=== PATIENT | female | born 2005 | race Caucasian/White ===

== ENCOUNTER 2024-11-02 17:50 | Emergency (ER) | payer SELFPAY ==
[~2024-11-02] VITALS: Ht 154.9 cm; Wt 39.1 kg
[2024-11-02 18:19] VITALS: TEMP 97.1
[2024-11-02 18:55] LABS: BILIRUBIN,URINE NEGATIVE (Neg); CLARITY,URINE CLEAR (Clear); COLOR,URINE YELLOW (Yellow); GLUCOSE, URINE NEGATIVE (Neg); KETONES,URINE TRACE mg/dl (Neg); LEUKOCYTE ESTERASE ,URINE NEGATIVE (Neg); NITRITES, URINE NEGATIVE (Neg); OCCULT BLOOD,URINE NEGATIVE (Neg); PH,URINE 6.5 (4.8-8.0); PROTEIN,URINE NEGATIVE (Neg); UROBILINOGEN,URINE 0.2 E.U/dL (0.2-1.0)
[2024-11-02 18:56] LABS: URINE HCG NEGATIVE (NEG)
[2024-11-02 19:03] LABS: UA COLLECTION TYPE CLN CATCH MIDSTREAM
[2024-11-02 19:13] LABS: BASOPHILS % (AUTO) 0.3 % (0-1); EOSINOPHILS # (AUTO) 0.1 X10'3 (0-0.9); HEMOGLOBIN 10.4 g/dl (12.0-16.0); LYMPHOCYTES # (AUTO) 1.8 X10'3 (1.1-4.8); LYMPHOCYTES % (AUTO) 24.4 % (21-51); MEAN CORPUSCULAR HEMOGLOBIN 28.5 PG (27.0-31.0); MEAN CORPUSCULAR HGB CONC 34.7 g/dL (33.0-36.5); MEAN CORPUSCULAR VOLUME 82.3 FL (78-98); MONOCYTES # (AUTO) 0.8 X10'3 (0-0.9); MONOCYTES % (AUTO) 10.9 % (2-12); NEUTROPHILS # (AUTO) 4.6 X10'3 (1.8-7.7); NEUTROPHILS % (AUTO) 63.4 % (42-75); PLATELET COUNT 167 X10'3 (140-440); RED BLOOD COUNT 3.64 X10'6 (4.20-5.60); RED CELL DISTRIBUTION WIDTH 13.5 % (11.5-14.5); WHITE BLOOD COUNT 7.3 X10'3 (4.5-11.0)
[2024-11-02 19:24] LABS: ALANINE AMINOTRANSFERASE 17 U/L (12-78); ALBUMIN 4.3 G/DL (3.4-5.0); ALBUMIN/GLOBULIN RATIO 1.4 (1.1-1.5); ALKALINE PHOSPHATASE 63 IU/L (20-180); ANION GAP 9 (8-16); ASPARTATE AMINO TRANSFERASE 15 U/L (10-37); BILIRUBIN,TOTAL 1.9 MG/DL (0.1-1.0); BLOOD UREA NITROGEN 9 MG/DL (7-18); BUN/CREATININE RATIO 13.4 (10.0-20.0); CALCIUM 8.8 MG/DL (8.5-10.1); CHLORIDE 105 MMOL/L (99-107); CREATININE 0.67 MG/DL (0.40-0.90); GLUCOSE 84 MG/DL (70-104); LIPASE 20 U/L (16-77); POTASSIUM 3.8 MMOL/L (3.5-5.1); SODIUM 143 MMOL/L (135-145); TOTAL CARBON DIOXIDE 28.7 MMOL/L (24-32); TOTAL PROTEIN 7.3 G/DL (6.4-8.2); eCRCL 83 ML/MIN; eGFR > 90 ML/MIN
--- NOTE | 2024-11-02 19:28 | Physician Documentation ---
History of Present Illness Chief Complaint: Abdominal Pain Stated Complaint: ABDOMINAL PAIN Source: patient, family Mode of Arrival: POV Exam Limitations: no limitations HPI Otherwise healthy female with right lower quadrant pain over the past 2 days. Did start after she bent over to pick something up. Has been relatively constant. It is mild to moderate. Did start her menstrual cycle a little early. Her family did travel from the [facility] yesterday. She does feel a little bit constipated. No nausea or vomiting. Medication Reconciliation Allergies: Coded Allergies: No Known Allergies (Unverified , 11/02/24) Past Medical History Past Medical History: No Pertinent History Review of Systems All Other Systems at this time: Reviewed and Negative Physical Exam Vital Signs: Temperature: 97.1, Heart Rate: 110, Respiratory Rate: 15, BP: 122/72, Pulse Oximetry: 100, Weight: 39.100 Physical Exam General: Alert and oriented x4, well-appearing, well-nourished, no acute distress HEENT: Normocephalic, atraumatic, no visible or palpable masses or depression, extraocular movements intact, PERRLA, Heart: Regular rate Lungs: Clear normal work of breathing Abdomen: Soft, mildly tender in the right lower quadrant, no palpable masses Extremities: Full range of motion, no acute deformity, Musculoskeletal: Normal gait, normal tone Neurologic: Cranial nerves 2-12 are intact, Psychiatric: Alert and oriented x4, judgment and insight normal, normal mood and affect Skin: Good turgor, no rashes Progress Results/Orders Results/Orders Vital Signs 11/02/24 18:19 Temp 97.1 Pulse 110 Resp 15 B/P (MAP) 122/72 Pulse Ox 100 Laboratory Tests Test 11/02/24 18:23 11/02/24 18:35 Urine Specimen Description Cln catch midstream Urine Color Yellow Urine Clarity Clear Urine pH 6.5 Urine Specific [place] <=1.005 Urine Protein Negative Urine Glucose (UA) Negative Urine Ketones Trace H Urine Occult Blood Negative Urine Nitrite Negative Urine Bilirubin Negative Urine Urobilinogen 0.2 Urine Leukocyte Esterase Negative Urine Culture Indicated Not ind Volume Urine Centrifuged 10 ml Urine HCG, Qualitative Negative Urine Comment White Blood Count 7.3 Red Blood Count 3.64 L Hemoglobin 10.4 L Hematocrit 30.0 L Mean Corpuscular Volume 82.3 Mean Corpuscular Hemoglobin 28.5 Mean Corpuscular Hemoglobin Concent 34.7 Red Cell Distribution Width 13.5 Platelet Count 167 Mean Platelet Volume 8.0 Neutrophils (%) (Auto) 63.4 Lymphocytes (%) (Auto) 24.4 Monocytes (%) (Auto) 10.9 Eosinophils (%) (Auto) 1.0 Basophils (%) (Auto) 0.3 Neutrophils # (Auto) 4.6 Lymphocytes # (Auto) 1.8 Monocytes # (Auto) 0.8 Eosinophils # (Auto) 0.1 Basophils # (Auto) 0.0 CBC Comment Sodium Level 143 Potassium Level 3.8 Chloride Level 105 Carbon Dioxide Level 28.7 Anion Gap 9 Blood Urea Nitrogen 9 Creatinine 0.67 Estimated GFR/1.73 m2 > 90 BUN/Creatinine Ratio 13.4 Glucose Level 84 Calcium Level 8.8 Total Bilirubin 1.9 H Aspartate Amino Transf (AST/SGOT) 15 Alanine Aminotransferase (ALT/SGPT) 17 Alkaline Phosphatase 63 Total Protein 7.3 Albumin 4.3 Globulin 3.0 Albumin/Globulin Ratio 1.4 Lipase 20 Chemistry Comments Medical Decision Making Additional Comments Differential includes but is not limited to: Appendicitis, UTI, , ovarian cyst/torsion, constipation, dehydration Departure Disposition: HOME / SELF CARE / HOMELESS Impression: Primary Impression: Right lower quadrant pain Additional Impression Text Patient in with a very dull right lower quadrant pain. Proximally 2/10. Did not want any medication. Labs unremarkable including CBC, chemistry and urinalysis. test negative. GC chlamydia sent out for testing. Ultrasound showed an enlarged right ovary at 5 x 5 x 6 cm. It does show free fluid in the pelvis. Radiologist called and said there is blood flow to the ovary but given the rest of the findings could not rule out torsion. Discussed the case with Gynecology Dr. Calderon at [facility]. He felt that given the patient's lack of pain and the fact that she was resting comfortably that torsion was highly unlikely. More likely retrograde menstrual cycle or ovarian cyst. Also no leukocytosis. Abdominal ultrasound also ruled out appendicitis. It is currently 3:[address] Calderon will see her in his office at 8:30 a. m.. Discharged home in good condition. Once again declined pain medication. She is to return here or go to [facility] if new or worsening symptoms prior to follow up at 8:30 a.m. in the morning. Condition: Stable Discharge Instructions: Abdominal Pain, Women Additional Instructions: Follow-up with Dr. Ashlyn Calderon between 8:15 a.m. and 9:00 a.m. The address is [address] [place] [address]. Phone number is [phone]. Return to the emergency room prior to that appointment if new or worsening symptoms. Referrals: NO PRIMARY CARE PROVIDER (PCP) Education Educated: Patient, Family Educated regarding: diagnosis, treatment, prognosis Additional Comment Medical Screen Exam History: This is a 18-year-old female presents with two days of periumbilical abdominal pain onset after bending over to pick something up that is worse with walking, patient reports nausea without diarrhea or vomiting, patient reports some dysuria without fever or chills. Patient reports recent constipation though had bowel movement today. Exam: VITALS: Reviewed and as above. GENERAL: Alert, nontoxic appearing, no apparent distress. RESPIRATORY: No increased work of breathing, no respiratory distress, speaking in full clear sentences MSE performed in triage and patient returned to ED lobby by nursing staff The note accurately reflects work and decisions made by me.LILI Muñoz 11/02/24 19:28 Signature Scribe Signature: No scribe Attestation: No scribe PRATEEK FLORES Nov 02, 2024 19:28 ALICIA WHALEN MD Nov 02, 2024 22:39
[2024-11-02] MEDS ORDERED: iohexol 300mg/ml 100ml inj. ONE (20:28)
--- NOTE | 2024-11-02 23:14 | RADIOLOGY REPORT ---
ABDOMINAL ULTRASOUND quadrant CLINICAL HISTORY: Right lower quadrant pain, evaluate for appendicitis versus ovarian cyst TECHNIQUE:Multiple grayscale and color Doppler ultrasound images were obtained of the abdomen., right lower quadrant WID: COMPARISON: None FINDINGS /impression: The appendix is not seen. No fluid collection
--- NOTE | 2024-11-03 01:49 | RADIOLOGY REPORT ---
TRANSABDOMINAL AND TRANSVAGINAL PELVIC ULTRASOUND CLINICAL HISTORY: Right lower quadrant pain TECHNIQUE: Multiple grayscale ultrasound images were obtained of the pelvis via transabdominal and tr ansvaginal approach. Limited color Doppler and spectral Doppler acquisitions were also obtained. COMPARISON: None FINDINGS: Uterus: 7.4 x 3.0 x 4.1 cm. The uterine contour is smooth. No myometrial masses are seen. Endometrium: 0.5 cm. No endometrial mass is seen. Right adnexa: right ovary 5.3 x 5.1 x 5.9 cm. Normal arterial blood flow in the ovary. No right adnex al mass seen. Left adnexa: left ovary 3.6 x 2.1 x 3.0 cm. Normal arterial blood flow in the ovary. No left adnexal mass seen. Other: Large amount of fluid in the pelvis. IMPRESSION: Enlarged heterogeneous right ovary. Although flow is detected in the right ovary, in the setting of a cute right lower quadrant pain an enlarged ovary, ovarian torsion is a possibility.
[2024-11-03 03:04] VITALS: BP 122/74; PULSE 82; RESP 14; O2SAT 99
[2024-11-05 06:10] LABS: CHLAMYDIA TRACHOMATIS, NAA Negative (Negative)
== END 2024-11-03 03:06 | disposition home or self-care (01) ==
LOC: ER 17:51
DX: R10.31 Right lower quadrant pain (principal); K59.00 Constipation, unspecified
CPT/HCPCS: 36415; 76705; 76856; 80053; 81003; 81025; 83690; 85025; 87491; 93976; 99284; Q9967